=== PATIENT | female | born 1940 | race Caucasian/White ===

== ENCOUNTER 2018-07-20 15:21 | Emergency (ER) | payer OTHER ==
[2018-07-20 15:32] VITALS: TEMP 99.8
[2018-07-20 16:40] VITALS: BP 151/75; PULSE 73; RESP 18; O2SAT 96
== END 2018-07-20 17:05 | disposition home or self-care (01) | DRG 153 ==
LOC: ED 15:21
DX: J06.9 Acute upper respiratory infection, unspecified (principal); Z87.891 Personal history of nicotine dependence; R06.02 Shortness of breath
CPT/HCPCS: 71046; 93005; 99282; 99283